=== PATIENT | female | born 1990 | race African-American/Black ===

== ENCOUNTER 2019-12-23 11:32 | Observation (INO) | payer MEDICAID ==
[2019-12-23] MEDS ORDERED: ONDANSETRON 2MG/ML, 2ML ONE (12:45)
[2019-12-23 12:53] LABS: MICROSCOPIC INDICATED
[2019-12-23] MEDS ORDERED: LACTATED RINGERS 1,000 ML IVBOLUS ONE (13:00)
[2019-12-23] MEDS ORDERED: ONDANSETRON 2MG/ML, 2ML IVPush PRN (13:00)
[2019-12-23] MEDS ORDERED: PLEASE ENTER HEIGHT AND WEIGHT MC SCH (13:00)
[2019-12-23 13:07] VITALS: BP 108/67
[2019-12-23 13:12] LABS: AMPHETAMINE SCREEN, URINE Negative (Negative); BARBITURATE SCREEN, URINE Negative (Negative); BENZODIAZEPINE SCREEN, URINE Negative (Negative); CANNABINOID SCREEN, URINE Positive (Negative); COCAINE SCREEN, URINE Negative (Negative); METHADONE SCREEN, URINE Negative (Negative); OPIATE SCREEN, URINE Negative (Negative)
[2019-12-23] MEDS ORDERED: D5%-LACTATED RINGERS 500ML IVBOLUS ONE (15:30)
[2019-12-23] MEDS ORDERED: ONDANSETRON ODT 4 MG ONE (16:28)
[2019-12-23] MEDS ORDERED: ONDANSETRON ODT 4 MG PO ONE (16:30)
== END 2019-12-23 17:15 | disposition home or self-care (01) ==
LOC: LDOP 11:32 → LDIP 16:56
PROVIDERS: ADMIT Obstetrics & Gynecology; ATTEND Obstetrics & Gynecology
DX: O21.2 Late vomiting of pregnancy (principal); Z3A.25 25 weeks gestation of pregnancy; Z79.899 Other long term (current) drug therapy
CPT/HCPCS: 80307; 81001; 87086; 96374; 99211; G0378; J2405; J7120; J7121; Q0162; 96360; 96361; G0463